=== PATIENT | female | born 1980 | race Caucasian/White ===

== ENCOUNTER 2023-09-25 06:32 | Emergency (ER) | payer BC, SELFPAY ==
[2023-09-25 06:36] VITALS: BP 137/92; PULSE 103; RESP 20; TEMP 36.7; O2SAT 99
[2023-09-25 07:17] VITALS: BP 143/89; PULSE 98; RESP 15; O2SAT 98
[2023-09-25] MEDS: LORazepam INJ (*CRX) 2 MG/ML VIAL 1 MG IM (07:48)
--- NOTE | 2023-09-25 07:57 | ED.ANXIETY ---
HPI - Anxiety General Chief Complaint: Anxiety Stated Complaint: anxiety Time Seen by Provider: 09/25/23 07:20 History of Present Illness HPI narrative: Pt has a history of anxiety and lost dog this morning about 0400. Pt is distraught and says she is having a panic attack. Pt has friend with her and pt will stay with her because is out of town and she doesn't want her to be alone. Pt requests something for anxiety. Related Data Home Medications Medication Instructions Recorded Confirmed fluoxetine 20 mg capsule 20 mg PO DAILY 02/04/19 02/19/19 vit no.95-ferrous 1 tablet PO DAILY 02/04/19 02/19/19 fumarate 28 mg-folic acid 800 mcg tablet () zolpidem 10 mg tablet (Ambien) 10 mg PO HS PRN Sleep 02/19/19 02/19/19 Allergies Allergy/AdvReac Type Severity Reaction Status Date / Time No Known Allergies Allergy Unknown Verified 09/25/23 07:17 Review of Systems Review of Systems: All systems reviewed & are unremarkable except as noted in HPI and below PMFSH Past Medical History Medical History (Updated 09/25/23 @ 08:47 by Maureen Alicea III, DO) Anxiety Surgical History Surgical History (Updated 07/18/23 @ 10:01 by JATINDER Serrano) H/O dilation and curettage (06/21/17) suction D&C missed AB History of appendectomy (01/07/08) Hx of dilation and curettage (08/10/13) D&C COMPLETE AB Family History Family History (Updated 02/04/19 @ 10:12 by Artur Haywood RN) Other Unknown family medical history Social History Social History Smoking status: Never smoker Substance use: never Gender identity (if verbalized by the patient): Female Spiritual care concerns: No Exam Const: General: healthy appearing Nutritional Appearance: well nourished Orientation/consciousness: patient oriented x3 Limitations: behavioral limitations Eyes: Conjunctivae: conjunctivae normal Pupils: Equal, round and reactive pupils present EOM: EOMs intact bilaterally Resp: Effort & Inspection: normal respiratory effort Auscultation: clear to auscultation bilaterally Cardio: Rate: regular rate Rhythm: regular rhythm GI: GI Palp: Yes Soft to palpation and No Tenderness to palpation present (GI) Auscultation: normal bowel sounds Skin: General skin exam: normal color Rashes: no rashes Wounds: no wounds Neuro: General: patient oriented x3, moves all extremities, no meningeal signs, no focal motor deficits and CN's II-XI intact bilaterally Speech: normal speech Extrem: General: normal to inspection and no clubbing, cyanosis or edema Psych: Mental Status: mental status grossly normal Affect: normal affect Attitude: cooperative Course Vital Signs Vital signs: Vital Signs Temperature 98.1 F 09/25/23 06:36 Pulse Rate 103 H 09/25/23 06:36 Respiratory Rate 20 09/25/23 06:36 Blood Pressure 137/92 H 09/25/23 06:36 Pulse Oximetry 99 09/25/23 06:36 Oxygen Delivery Room Air 09/25/23 06:36 Temperature 98.1 F 09/25/23 06:36 Pulse Rate 100 09/25/23 08:59 Respiratory Rate 15 09/25/23 08:59 Blood Pressure 124/73 09/25/23 08:59 Pulse Oximetry 98 09/25/23 08:59 Oxygen Delivery Room Air 09/25/23 06:36 MDM - Anxiety MDM Narrative Medical decision making narrative: Pt very anxious after losing her dog tragically this morning. Pt just wants soething for nerves so will try IM ativan to start. Pt feels better after ativan and would like to go home. will prescribe a few ativan for home. Discharge Plan Discharge Clinical Impression: Acute anxiety Patient Disposition: Home, Self-Care Condition: Improved Instructions: Antibiotic Form, Anxiety (ED) Prescriptions: New lorazepam [Ativan] 1 mg tablet 1 mg PO TID PRN (Reason: anxiety) Qty: 10 0RF No Action fluoxetine 20 mg Capsule 20 mg PO DAILY PNV cmb#95-ferrous fumarate-FA [] 28 mg iron- 800 mcg Tablet 1 tablet PO DAILY zolpidem [Ambien]
[2023-09-25 08:59] VITALS: BP 124/73; PULSE 100; RESP 15; O2SAT 98
== END 2023-09-25 09:01 | disposition home or self-care (01) ==
PROVIDERS: Emergency Provider Emergency Medicine
DX: F41.9 Anxiety disorder, unspecified (principal); Z79.899 Other long term (current) drug therapy
CPT/HCPCS: 96372; 99283; J2060